=== PATIENT | female | born 1955 | race Caucasian/White ===

== ENCOUNTER → 2017-01-23 | Outpatient (CLI) | payer OTHER ==
--- NOTE | ~2017-01-23 | MR17 ---
[facility] A Service of [facility] RADIOLOGY TEXT RESULTS PATIENT: EUFEMIA ESPOSITO LOCATION: [facility] : 51 UNIT #: [id number] AGE: [address]: Deangelo Tsai II, MD SEX: F ORDER DR: [id number] [facility] [address] [place], [place] [address] [id number] O MR#: [id number] Acc #: [id number] NAME: EUFEMIA ESPOSITO : 1955 SEX: F STUDY DATE/TIME: 01/23/2017 10:17 UNIT: [facility] ROOM: STUDY DESCRIPTION: MR Brain WWo Contrast Attending Physician: Deangelo Tsai II., M.D. Referring Physician: Denagelo Tsai II., M.D. Ordering Physician: Deangelo Tsai II., M.D. Primary Care Physician: [facility] REPORT This report is preliminary unless electronic signature is present. EXAM MRI of the brain with and without contrast dated 01/23/2017 COMPARISON None HISTORY Memory loss for the last 2 years and balance problems. FINDINGS Multisequence multiplanar imaging of the brain was obtained with and without contrast. GFR measured 46. 15 mL of MultiHance was administered intravenously. Punctate 1 or 2 nonspecific nonenhancing hyperintense T2 signal foci are noted in the white matter. No acute stroke, enhancing mass, mass effect, midline shift or hydrocephalus. Mild to moderate left mastoid and varying degrees of paranasal sinus mucosal thickening are noted. Air fluid levels are seen in the various paranasal sinuses, particularly left maxillary and bilateral ethmoid sinuses. Nasal septum is deviated to the left. Imaged orbits and the ocular structures do not demonstrate any significant abnormality. Thick slices through the sella with the pituitary gland and pineal region are unremarkable. Mild degenerative changes are noted in the cervical spine. Postcontrast sequences do not demonstrate enhancing lesions. IMPRESSION 1. Punctate 2-3 nonspecific nonenhancing few hyperintense T2-signal lesions are noted in the white matter, likely related to minimal chronic microvascular ischemic change or migraine based on age and statistics. 2. Left mastoid and paranasal sinus mucosal thickening are noted. Correlate with [id number] sinusitis and left mastoiditis clinically. [facility] A Service of [facility] RADIOLOGY TEXT RESULTS PATIENT: EUFEMIA ESPOSITO LOCATION: [facility] : 53 UNIT #: [id number] AGE: [address]: Deangelo Tsai II, MD SEX: F ORDER DR: Dictated by... Juan Swartz M.D. THIS IS AN ELECTRONICALLY VERIFIED REPORT Juan Swartz M.D. at 01/25/2017 5:17 PM CPR/karina TD: 01/25/2017 10:46 JOB #: [id number] [facility] REPORT COPY
[2017-01-23 10:15] LABS: POC - CREATININE 1.25 mg/dL (0.44-1.03)
== END | disposition home or self-care (01) ==
LOC: CMRI 09:27
PROVIDERS: Psychiatry & Neurology Neurology
DX: R41.3 Other amnesia (principal); G93.9 Disorder of brain, unspecified; J34.89 Other specified disorders of nose and nasal sinuses
CPT/HCPCS: 70553; 82565; A9577